=== PATIENT | female | born 1975 | race Caucasian/White ===

== ENCOUNTER 2020-03-14 08:45 | Day surgery (SDC) | payer BC, SELFPAY ==
[2020-03-08 08:51] LABS: BASOPHILS # (AUTO) 0.1 K/uL (0.0-0.2); BASOPHILS % (AUTO) 0.7 % (0.0-2.0); EOSINOPHILS # (AUTO) 0.1 K/uL (0.0-0.4); EOSINOPHILS % (AUTO) 1.3 % (0.0-4.0); HEMATOCRIT 44.3 % (36-48); LYMPHOCYTES # (AUTO) 2.3 K/uL (1.0-5.5); LYMPHOCYTES % (AUTO) 32.2 % (20.5-51.5); MEAN CORPUSCULAR HEMOGLOBIN 31 pg (27-31); MEAN CORPUSCULAR HGB CONC 34 % (32-36); MEAN CORPUSCULAR VOLUME 91 fL (79.0-98.0); MONOCYTES # (AUTO) 0.4 K/uL (0.0-1.0); NEUTROPHILS # (AUTO) 4.3 K/uL (1.8-7.7); NEUTROPHILS % (AUTO) 60.8 % (40.0-70.0); PLATELET COUNT (AUTO) 204 K/uL (130-430); RED BLOOD CELL COUNT(AUTO) 4.85 MIL/uL (4.2-6.2); RED CELL DISTRIBUTION WIDTH 12.4 % (9.0-15.0); WHITE BLOOD COUNT (AUTO) 7.1 K/uL (4.8-10.8)
[2020-03-08 09:14] LABS: BILIRUBIN,URINE NEGATIVE (NEGATIVE); BLOOD, URINE NEGATIVE (NEGATIVE); CLARITY/URINE CLEAR (CLEAR); COLOR,URINE YELLOW (YELLOW); GLUCOSE,URINE NEGATIVE (NEGATIVE); KETONES,URINE NEGATIVE (NEGATIVE); LEUKOCYTE ESTERASE ,URINE 1+ (NEGATIVE); NITRITE, URINE NEGATIVE (NEGATIVE); PROTEIN URINE NEGATIVE (NEGATIVE); UROBILINOGEN,URINE 0.2 (0.2-1.0)
[2020-03-08 09:15] LABS: HCG,QUAL RESULT NEGATIVE (NEGATIVE)
[2020-03-08 10:38] LABS: BACTERIA,URINE FEW /HPF (None Seen); RBC,URINE 0-3 /HPF (0-3)
[~2020-03-14] VITALS: Ht 167.6 cm; Wt 72.6 kg
[~2020-03-14 08:45] MED LIST: CEFAZOLIN SOD 1 GM in D5W 50 ML IV ONE
[2020-03-14 09:11] LABS: HCG,QUAL RESULT NEGATIVE (NEGATIVE)
[2020-03-14] MEDS ORDERED: ONDANSETRON HCL 4 MG/2 ML VIAL IVP PRN ×2 (11:15→12:00)
[2020-03-14] MEDS ORDERED: HYDROmorphone 1 MG INJ. 1 MG/ML AMPUL IVP PRN (11:15)
[2020-03-14] MEDS ORDERED: OXYCODONE/ACETAMINOPHEN 5-325 TABLET PO PRN ×2 (12:00)
[2020-03-14] MEDS ORDERED: HYDROcodone/ACETAMIN 5-325 MG TAB (NORCO/ VICODIN) PO PRN (12:00)
[2020-03-14] MEDS ORDERED: ROCURONIUM BROMIDE 10 MG/ML (ZEMURON) ONE (12:25)
[2020-03-14] MEDS ORDERED: PHENYLEPHRINE HCL 10 MG/ML VIAL (NEOSYNEPHRINE) ONE (12:25)
[2020-03-14] MEDS ORDERED: PROPOFOL 200MG/ 20ML VIAL (DIPRIVAN) IV ONE (12:25)
[2020-03-14] MEDS ORDERED: SEVOFLURANE 15 MIN GAS INH ONE (12:25)
[2020-03-14] MEDS ORDERED: FUROSEMIDE 20 MG/2 ML VIAL ONE (12:25)
[2020-03-14] MEDS ORDERED: LIDOCAINE 1% 10 MG/ML, 20 ML MDV ONE (12:25)
[2020-03-14] MEDS ORDERED: LR 1,000 ML IV.SOLN IV ONE (12:25)
[2020-03-14] MEDS ORDERED: SUCCINYLCHOLINE CHLORIDE 20 MG/ML(QUELICIN) ONE (12:25)
[2020-03-14] MEDS ORDERED: NEOSTIGMINE METHYLSULFATE 1 MG/ML, 10 ML VIAL ONE (12:25)
[2020-03-14] MEDS ORDERED: NS 1000 ML IV.SOLN IV ONE (12:25)
[2020-03-14] MEDS ORDERED: ONDANSETRON HCL 4 MG/2 ML VIAL ONE (12:25)
[2020-03-14] MEDS ORDERED: NS IRRIG SOLN 1000 ML IR ONE (12:25)
[2020-03-14] MEDS ORDERED: fentaNYL CITRATE/PF 100 MCG/2 ML AMP ONE (12:25)
[2020-03-14] MEDS ORDERED: WATER FOR IRRIGATION,STERILE 1,000 ML IRRIG.SOLN IR ONE (12:25)
[2020-03-14] MEDS ORDERED: GLYCOPYRROLATE 0.2 MG/ML VIAL ONE (12:25)
[2020-03-14] MEDS ORDERED: KETOROLAC TROMETHAMINE 30 MG VIAL IVP ONE (13:30)
[2020-03-14 15:35] VITALS: BP_SYST 104
== END 2020-03-14 15:15 | disposition home or self-care (01) ==
LOC: SMU 08:45 → SDS 08:45
PROVIDERS: ATTEND Specialist
DX: N83.202 Unspecified ovarian cyst, left side (principal); Z79.899 Other long term (current) drug therapy; N83.201 Unspecified ovarian cyst, right side; Z11.59 Encounter for screening for other viral diseases
CPT/HCPCS: 36415; 58661; 71046; 81000; 84703 ×2; 85025; 88305; 93005; C1727; C1782; J0330; J0690; J1940; J2001; J2370; J2405; J2704; J2710; J3010; J3490; J7030; J7060; J7120; S2900; U0003